=== PATIENT | male | born 1990 | race Two or more races ===

== ENCOUNTER 2021-02-08 12:40 | Emergency (ER) | payer OTHER ==
[~2021-02-08] VITALS: Ht 177.8 cm; Wt 71.7 kg
== END 2021-02-08 15:55 | disposition home or self-care (01) ==
LOC: ER 12:40
DX: S13.4XXA Sprain of ligaments of cervical spine, initial encounter (principal); M54.2 Cervicalgia; V49.9XXA Car occupant (driver) (passenger) injured in unspecified traffic accident, initial encounter; Y93.89 Activity, other specified; Y92.488 Other paved roadways as the place of occurrence of the external cause; Y99.8 Other external cause status